=== PATIENT | female | born 2005 ===

== ENCOUNTER → 2024-11-24 11:54 | Outpatient (CLI) | payer OTHER | END | disposition home or self-care (01) | LOC: PRENATAL 11:54 | PROVIDERS: ATTEND Obstetrics & Gynecology Maternal & Fetal Medicine | DX: O44.00 Complete placenta previa NOS or without hemorrhage, unspecified trimester (principal); O28.3 Abnormal ultrasonic finding on antenatal screening of mother; Z14.8 Genetic carrier of other disease; Z3A.26 26 weeks gestation of pregnancy ==

== ENCOUNTER 2024-12-20 14:25 | Outpatient (CLI) | payer OTHER | END 2024-12-20 14:26 | disposition home or self-care (01) | LOC: PRENATAL 14:25 | PROVIDERS: ATTEND Obstetrics & Gynecology Maternal & Fetal Medicine | DX: O26.849 Uterine size-date discrepancy, unspecified trimester (principal); O36.8199 Decreased fetal movements, unspecified trimester, other fetus; O28.3 Abnormal ultrasonic finding on antenatal screening of mother; O36.60X0 Maternal care for excessive fetal growth, unspecified trimester, not applicable or unspecified; Z14.8 Genetic carrier of other disease; Z3A.30 30 weeks gestation of pregnancy ==

== ENCOUNTER → 2025-02-01 12:14 | Outpatient (CLI) | payer OTHER | END | disposition home or self-care (01) | LOC: PRENATAL 12:14 | PROVIDERS: ATTEND Obstetrics & Gynecology Maternal & Fetal Medicine | DX: O26.849 Uterine size-date discrepancy, unspecified trimester (principal); O36.8199 Decreased fetal movements, unspecified trimester, other fetus; O28.3 Abnormal ultrasonic finding on antenatal screening of mother; O36.60X0 Maternal care for excessive fetal growth, unspecified trimester, not applicable or unspecified; Z14.8 Genetic carrier of other disease; Z3A.35 35 weeks gestation of pregnancy ==